=== PATIENT | male | born 1945 | race Caucasian/White ===

== ENCOUNTER 2017-03-05 08:35 | Emergency (ER) | payer MEDICARE ==
[2017-03-05 09:04] VITALS: BP 137/70
--- NOTE | 2017-03-05 09:46 | UC ---
Skin Complaint HPI - HPI Summary HPI Summary: Here w/ posion myla rash mainly to groin area and some under RIGHT/LEFT axilla since this past Thursday. States itching has gotten worse since Thursday. Tried applying kenalog cream w/ no relief. no tick bites. on coumadin for a fib / previous stroke and previous INR 2.6 1 week ago. he went to the [employer] 3 days ago and exposed to poison myla and also sat down on numerous logs [ End ] - History of Current Complaint Chief Complaint: UCSkin Time Seen by Provider: 03/05/17 09:33 Stated Complaint: SKIN COMPLAINT Hx Obtained From: Patient, Family/Odd Piece Checker Onset/Duration: Gradual Onset Onset Severity: Mild Current Severity: Moderate Character: Pruritus - Allergy/Home Medications Allergies/Adverse Reactions: Allergies Allergy/AdvReac Type Severity Reaction Status Date / Time No Known Allergies Allergy Verified 03/05/17 08:54 Home Medications: Home Medications Atorvastatin* [Lipitor 40 MG*] 40 mg PO QPM 03/05/17 [History Confirmed 03/05/17 ] Triamcinolone 0.025% CM(NF) [Kenalog Cream 0.025%*] 1 applic BID PRN 03/05/17 [ History Confirmed 03/05/17] amLODIPine TAB* [Norvasc 5 mg TAB*] 5 mg PO QPM 03/05/17 [History Confirmed 02/14] Review of Systems Constitutional: Negative Skin: Rash Eyes: Negative ENT: Negative Respiratory: Negative Cardiovascular: Negative Gastrointestinal: Negative Genitourinary: Negative Motor: Negative Neurovascular: Negative Musculoskeletal: Negative Neurological: Negative Psychological: Negative All Other Systems Reviewed And Are Negative: Yes PMH/Surg Hx/FS Hx/Imm Hx Previously Healthy: Yes Endocrine History: Dyslipidemia Cardiovascular History: Cardiac Disease, Hypertension, Atrial Fibrillation Neurological History: CVA - Surgical History Surgical History: Yes Surgery Procedure, Year, and Place: HERNIA REPAIR - Family History Known Family History: Positive: Hypertension - Social History Occupation: Retired Lives: With Family Alcohol Use: Rare Substance Use Type: None Smoking Status (MU): Never Smoked Tobacco - Immunization History Most Recent Influenza Vaccination: 2016 Most Recent Tetanus Shot: UTD Most Recent Pneumonia Vaccination: UTD Physical Exam Triage Information Reviewed: Yes Appearance: Well-Appearing, No Pain Distress, Well-Nourished Vital Signs: Initial Vital Signs Temp 98.5 F 03/05/17 08:58 Pulse 83 03/05/17 08:58 Resp 16 03/05/17 08:58 BP 137/70 03/05/17 08:58 Pulse Ox 97 03/05/17 08:58 Vital Signs Reviewed: Yes Eye Exam: Normal ENT Exam: Normal Dental Exam: Normal Neck exam: Normal Neck: Positive: 1 Respiratory Exam: Normal Cardiovascular Exam: Normal Musculoskeletal Exam: Normal Neurological Exam: Normal Psychological Exam: Normal Skin Exam: Normal Skin: Positive: rashes - maculopapular rash / lesions on the pubis, b/l groin, right lower back and lower abdomen. no streaking no induration Course/Dx - Course Course Of Treatment: recheck INR in 7-10 days to ensure no acute concerns. RTO if any concerns - Differential Diagnoses - Skin Complaint Differential Diagnoses: Contact Dermatitis - Diagnoses Provider Diagnoses: contact dermatitis Discharge - Discharge Plan Condition: Good Disposition: HOME Patient Education Materials: Contact Dermatitis (ED)
== END 2017-03-05 09:57 | disposition home or self-care (01) ==
LOC: UCCORT 08:35
DX: L25.9 Unspecified contact dermatitis, unspecified cause (principal); E78.5 Hyperlipidemia, unspecified; I48.91 Unspecified atrial fibrillation; Z79.01 Long term (current) use of anticoagulants; I10 Essential (primary) hypertension
CPT/HCPCS: 99212; G0463